=== PATIENT | female | born 1970 | race Caucasian/White ===

== ENCOUNTER 2016-09-18 11:05 | Emergency (ER) | payer MEDICARE ==
[2016-09-18 12:30] LABS: HEMOGLOBIN 13.8 gm/dl (12.3-15.3); RED BLOOD COUNT 4.56 M/UL (4.00-5.10); WHITE BLOOD COUNT 7.8 K/UL (4.5-11.0)
[2016-09-18 12:57] LABS: BUN/CREATININE RATIO 17 (0-10)
== END 2016-09-18 14:38 | disposition home or self-care (01) ==
LOC: ER1 11:05
PROVIDERS: Physician Assistant
DX: G51.0 Bell's palsy (principal); I10 Essential (primary) hypertension
CPT/HCPCS: 36415; 70450; 80053; 85025; 93005; 99284

== ENCOUNTER → 2020-12-03 | Outpatient (CLI) | payer OTHER ==
[~2020-12-03] MED LIST: CHRONULAC20 GM/30 M PO
== END ==
LOC: RT 14:06
DX: F11.20 Opioid dependence, uncomplicated (principal)
CPT/HCPCS: 93005

== ENCOUNTER → 2021-07-31 | Outpatient (CLI) | payer OTHER | LOC: RT 15:09 | DX: Z79.891 Long term (current) use of opiate analgesic (principal) | CPT/HCPCS: 93005 ==

== ENCOUNTER → 2021-11-04 | Outpatient (CLI) | payer OTHER | LOC: RT 07:33 | DX: Z79.891 Long term (current) use of opiate analgesic (principal) | CPT/HCPCS: 93005 ==